=== PATIENT | male | born 1965 | race African-American/Black ===

== ENCOUNTER 2018-11-05 13:41 | Inpatient (IN) | payer BC ==
[~2018-11-05] VITALS: Ht 190.5 cm; Wt 133.4 kg
[2018-11-05 14:11] LABS: GLUCOSE,POINT OF CARE 211 MG/DL (70-110)
[2018-11-05] MEDS ORDERED: ZOLPIDEM TARTRATE 10 MG TABLET PO PRN (16:30)
[2018-11-05] MEDS ORDERED: LORazepam 2 MG TABLET PO PRN (16:30)
[2018-11-05] MEDS ORDERED: HALOPERIDOL 5 MG TABLET PO PRN (16:30)
[2018-11-05 16:41] LABS: AMPHET/METH SCREEN,URINE NEGATIVE (NEGATIVE); BARBITURATE SCREEN, URINE NEGATIVE (NEGATIVE); BENZODIAZEPINES SCREEN,URINE NEGATIVE (NEGATIVE); CANNABINOID SCREEN,URINE NEGATIVE (NEGATIVE); COCAINE SCREEN,URINE POSITIVE (NEGATIVE); METHADONE SCREEN, URINE NEGATIVE (NEGATIVE); OPIATE SCREEN,URINE NEGATIVE (NEGATIVE)
[2018-11-05 16:51] LABS: BASOPHILS % (AUTO) 0.8 % (0.0-2.0); EOSINOPHILS % (AUTO) 1.4 % (1.0-6.0); HEMATOCRIT 42.6 % (41-53); HEMOGLOBIN 13.4 g/dL (13.5-17.5); LYMPHOCYTES # (AUTO) 1.7 K/uL (1.0-4.8); LYMPHOCYTES % (AUTO) 34.1 % (22.0-44.0); MEAN CORPUSCULAR HEMOGLOBIN 21.6 pg (26.0-34.0); MEAN CORPUSCULAR HGB CONC 31.5 G/dL (31.0-37.0); MEAN CORPUSCULAR VOLUME 69 fL (80-100); MONOCYTES # (AUTO) 0.4 K/uL (0.1-1.0); MONOCYTES % (AUTO) 7.2 % (2.0-9.0); NEUTROPHILS # (AUTO) 2.9 K/uL (1.8-7.7); NEUTROPHILS % (AUTO) 56.5 % (40.0-70.0); PLATELET COUNT (AUTO) 229 K/uL (150-450); RED BLOOD CELL COUNT(AUTO) 6.22 MIL/uL (4.50-5.90); RED CELL DISTRIBUTION WIDTH 16.8 % (11.5-14.5)
[2018-11-05 16:54] LABS: PHENCYCLIDINE SCREEN,URINE NEGATIVE (NEGATIVE)
[2018-11-05 17:01] LABS: ANION GAP 11 mmol/L (8-16); CALCIUM, TOTAL 9.4 mg/dL (8.8-10.5); CARBON DIOXIDE 24 mmol/L (22-29); CHLORIDE 104 mmol/L (98-107); CREATININE 1.01 mg/dL (0.60-1.30); GLOMERULAR FILTR. RATE CALC > 60 mL/min (>60); GLUCOSE,RANDOM 105 mg/dL (70-110); POTASSIUM 3.5 mmol/L (3.5-5.1); SODIUM SERUM 139 mmol/L (136-145); UREA NITROGEN, BLOOD 12 mg/dL (7-18)
[2018-11-05 17:07] LABS: ALANINE AMINOTRANSFERASE 36 U/L (12-78); ALBUMIN 3.3 g/dL (3.4-5.0); ALKALINE PHOSPHATASE 119 U/L (46-116); ASPARTATE AMINOTRANSFERASE 28 U/L (15-37); BILIRUBIN,TOTAL 0.5 mg/dL (0.1-1.0); TOTAL PROTEIN, SERUM 7.1 g/dL (6.4-8.2)
[2018-11-05 20:00] LABS: APPEARANCE,URINE CLEAR (CLEAR); GLUCOSE, URINE (UA) 250 mg/dL (NEGATIVE); KETONES,URINE NEGATIVE (NEGATIVE); LEUKOCYTE ESTERASE ,URINE NEGATIVE (NEGATIVE); NITRATE,URINE NEGATIVE (NEGATIVE); OCCULT BLOOD,URINE TRACE (NEGATIVE); PH,URINE 5.5 (5.0-8.0); PROTEIN,URINE NEGATIVE (NEGATIVE)
[2018-11-05 20:03] LABS: BILIRUBIN,URINE PRELIM. POSITIVE (NEGATIVE)
[2018-11-05 20:08] LABS: AMORPHOUS SEDIMENT,UR Many /LPF (None Seen); BACTERIA,URINE None Seen /HPF (None Seen); RBC,URINE 0-2 /HPF (0-2); SQUAMOUS EPITHELIAL CELL,UR Rare /LPF (None Seen)
[2018-11-05 20:09] LABS: WBC,URINE 0-2 /HPF (0-5)
[2018-11-05 20:38] VITALS: BP 137/75
[2018-11-05 20:41] VITALS: BP 137/75
[2018-11-05] MEDS ORDERED: PNEUMOCOCCAL VACCINE POLYVALENT 0.5 ML VIAL [PPSV23] IM ONE (22:00)
[2018-11-06 05:44] VITALS: BP 128/69
[2018-11-06] MEDS ORDERED: MAG HYDROX/AL HYDROX/SIMETH ES 30 ML SUSPENSION UDCUP PO PRN (17:15)
[2018-11-06] MEDS ORDERED: GLUCAGON,HUMAN RECOMBINANT 1 MG VIAL IM PRN (17:15)
[2018-11-06] MEDS ORDERED: IBUPROFEN 600 MG TABLET PO PRN (17:15)
[2018-11-06] MEDS ORDERED: OMEPRAZOLE 20 MG CAPSULE PO PRN (17:15)
[2018-11-06] MEDS ORDERED: DOCUSATE SODIUM 100 MG CAPSULE PO PRN (17:15)
[2018-11-06] MEDS ORDERED: ALBUTEROL SULFATE HFA 90 MCG/PUFF 8 GM INHALER IH PRN (17:15)
[2018-11-06] MEDS ORDERED: ACETAMINOPHEN 325 MG TABLET PO PRN (17:15)
[2018-11-06] MEDS ORDERED: BACITRACIN 28.4 GM OINTMENT TP PRN (17:15)
[2018-11-06] MEDS ORDERED: PETROLATUM,WHITE 28 GM JELLY TP PRN (17:15)
[2018-11-06] MEDS ORDERED: ONDANSETRON HCL 4 MG TABLET PO PRN (17:15)
[2018-11-06] MEDS ORDERED: BENZOCAINE/MENTHOL LOZENGE MM PRN (17:15)
[2018-11-06] MEDS ORDERED: LOPERAMIDE HCL 2 MG CAPSULE PO PRN (17:15)
[2018-11-06] MEDS ORDERED: INSULIN LISPRO 100 UNITS/ML SQ PRN (17:15)
[2018-11-06] MEDS ORDERED: MAGNESIUM HYDROXIDE SUSPENSION 30 ML UDCUP PO PRN (17:15)
[2018-11-06] MEDS ORDERED: CloNIDine HCL 0.1 MG TABLET PO PRN (17:15)
[2018-11-06 21:11] LABS: GLUCOMETER DEV NAME(LOC) BV3N.; GLUCOSE,POINT OF CARE 105 MG/DL (70-110)
[2018-11-07 06:36] LABS: GLUCOMETER DEV NAME(LOC) BV3N.; GLUCOSE,POINT OF CARE 94 MG/DL (70-110)
[2018-11-07] MEDS: MetFORMIN HCL 500 MG TABLET PO SCH ×2 (07:00→16:47)
[2018-11-07 08:12] VITALS: BP 132/64
[2018-11-07 08:39] LABS: HEMOGLOBIN A1C 5.8 % (4.5-6.2)
[2018-11-07 08:46] LABS: % IRON SATURATION 23.9 % (30-44)
[2018-11-07 08:49] LABS: CHOL/HDL RATIO 5.6 (4.2-7.3); THYROID STIMULATING HORMONE 3.85 uIU/mL (0.36-3.74)
[2018-11-07] MEDS: NICOTINE 21 MG/24 HOUR PATCH TD SCH (09:00)
[2018-11-07] MEDS ORDERED: FLUoxetine HCL 20 MG CAPSULE PO SCH (09:00)
[2018-11-07 13:01] LABS: GLUCOMETER DEV NAME(LOC) BV3N.; GLUCOSE,POINT OF CARE 125 MG/DL (70-110)
[2018-11-07 17:24] VITALS: BP 114/57
[2018-11-08 06:41] LABS: GLUCOMETER DEV NAME(LOC) BV3N.; GLUCOSE,POINT OF CARE 101 MG/DL (70-110)
[2018-11-08] MEDS: MetFORMIN HCL 500 MG TABLET PO SCH (07:00)
[2018-11-08 08:00] VITALS: BP 109/60
[2018-11-08] MEDS: NICOTINE 21 MG/24 HOUR PATCH TD SCH (09:00)
[2018-11-08] MEDS: OMEGA-3/DHA/EPA/FISH OIL 1,000 MG CAPSULE PO SCH (10:16)
[2018-11-08] MEDS: BuPROPion HCL XL 150 MG ER TABLET PO SCH (10:16)
[2018-11-08 12:21] LABS: GLUCOMETER DEV NAME(LOC) BV3N.; GLUCOSE,POINT OF CARE 107 MG/DL (70-110)
[2018-11-08 16:36] VITALS: BP 113/61
[2018-11-09] MEDS: LEVOTHYROXINE SODIUM 25 MCG TABLET PO SCH (06:26)
[2018-11-09 06:41] LABS: GLUCOMETER DEV NAME(LOC) BV3N.; GLUCOSE,POINT OF CARE 103 MG/DL (70-110)
[2018-11-09 08:20] VITALS: BP 139/62
[2018-11-09] MEDS: BuPROPion HCL XL 150 MG ER TABLET PO SCH (08:37)
[2018-11-09] MEDS: NICOTINE 21 MG/24 HOUR PATCH TD SCH (08:37)
[2018-11-09] MEDS: OMEGA-3/DHA/EPA/FISH OIL 1,000 MG CAPSULE PO SCH (08:37)
[2018-11-09 11:46] LABS: GLUCOMETER DEV NAME(LOC) BV3N.; GLUCOSE,POINT OF CARE 90 MG/DL (70-110)
[2018-11-09 16:00] VITALS: BP 123/67
[2018-11-10] MEDS: LEVOTHYROXINE SODIUM 25 MCG TABLET PO SCH (06:30)
[2018-11-10 06:47] LABS: GLUCOMETER DEV NAME(LOC) BV3N.; GLUCOSE,POINT OF CARE 109 MG/DL (70-110)
[2018-11-10] MEDS: NICOTINE 21 MG/24 HOUR PATCH TD SCH (08:30)
[2018-11-10] MEDS: OMEGA-3/DHA/EPA/FISH OIL 1,000 MG CAPSULE PO SCH (08:30)
[2018-11-10] MEDS: BuPROPion HCL XL 150 MG ER TABLET PO SCH (08:30)
[2018-11-10 16:00] VITALS: BP 109/70
[2018-11-10 16:55] LABS: GLUCOMETER DEV NAME(LOC) BV3N.; GLUCOSE,POINT OF CARE 97 MG/DL (70-110)
[2018-11-11 03:46] VITALS: BP 123/78
[2018-11-11] MEDS: LEVOTHYROXINE SODIUM 25 MCG TABLET PO SCH (06:11)
[2018-11-11 08:19] VITALS: BP 114/68
[2018-11-11] MEDS: NICOTINE 21 MG/24 HOUR PATCH TD SCH (09:00)
[2018-11-11] MEDS: BuPROPion HCL XL 150 MG ER TABLET PO SCH (09:23)
[2018-11-11] MEDS: OMEGA-3/DHA/EPA/FISH OIL 1,000 MG CAPSULE PO SCH (09:24)
[2018-11-11 11:46] LABS: GLUCOMETER DEV NAME(LOC) BV3N.; GLUCOSE,POINT OF CARE 99 MG/DL (70-110)
[2018-11-11 16:14] VITALS: BP 115/66
[2018-11-11 17:40] LABS: GLUCOMETER DEV NAME(LOC) BV3N.; GLUCOSE,POINT OF CARE 138 MG/DL (70-110)
[2018-11-12] MEDS: LEVOTHYROXINE SODIUM 25 MCG TABLET PO SCH (06:30)
[2018-11-12 08:17] VITALS: BP 131/92
[2018-11-12] MEDS: BuPROPion HCL XL 150 MG ER TABLET PO SCH (08:45)
[2018-11-12] MEDS: OMEGA-3/DHA/EPA/FISH OIL 1,000 MG CAPSULE PO SCH (08:45)
[2018-11-12] MEDS: NICOTINE 21 MG/24 HOUR PATCH TD SCH (08:46)
[2018-11-12] MEDS ORDERED: LEVO50TA11 PO (09:38)
[2018-11-12] MEDS ORDERED: BUPR-93 PO (09:38)
[2018-11-12] MEDS ORDERED: OMEG-135 PO (09:38)
== END 2018-11-12 12:17 | disposition home or self-care (01) | DRG 885 ==
LOC: EMS 13:45 → B3A 17:44 → EMS 19:40 → B3A 11-06 19:41
DX: F33.2 Major depressive disorder, recurrent severe without psychotic features (principal); R45.851 Suicidal ideations; D64.9 Anemia, unspecified; E11.65 Type 2 diabetes mellitus with hyperglycemia; E66.9 Obesity, unspecified; F14.10 Cocaine abuse, uncomplicated; F41.9 Anxiety disorder, unspecified; G89.29 Other chronic pain; M54.9 Dorsalgia, unspecified; G47.00 Insomnia, unspecified; F17.210 Nicotine dependence, cigarettes, uncomplicated; J44.9 Chronic obstructive pulmonary disease, unspecified; M19.90 Unspecified osteoarthritis, unspecified site; Z59.0 Homelessness; Z68.36 Body mass index [BMI] 36.0-36.9, adult; Z71.6 Tobacco abuse counseling; Z71.51 Drug abuse counseling and surveillance of drug abuser
CPT/HCPCS: 83036; 83540; 83550; 84443; G0480